=== PATIENT | female | born 1935 | race Caucasian/White ===

== ENCOUNTER 2018-04-13 16:11 | Outpatient (CLI) | payer MEDICARE ==
--- NOTE | 2018-04-13 16:32 | RAD ---
THORACIC SPINE THREE VIEWS: HISTORY: Back pain. Fall three weeks ago. FINDINGS: There is severe compression deformity involving the T12 vertebra. This vertebra has a vertebral plan a type deformity with severe loss of central and anterior height. There may be slight retropulsion a t the posterior cortex. The other thoracic vertebrae maintain normal height. 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 This is age indeterminate. POS: [facility]
== END 2018-04-13 16:12 | disposition home or self-care (01) ==
LOC: NAV RAD 16:11
PROVIDERS: ATTEND Family Medicine
DX: M54.6 Pain in thoracic spine (principal); M43.8X4 Other specified deforming dorsopathies, thoracic region
CPT/HCPCS: 72072

== ENCOUNTER 2024-12-03 11:02 | Outpatient (CLI) | payer MEDICARE | END 2024-12-03 11:03 | disposition home or self-care (01) | LOC: NAV RAD 11:02 | PROVIDERS: ATTEND Student in an Organized Health Care Education/Training Program | DX: M54.50 Low back pain, unspecified (principal); M25.551 Pain in right hip; M25.552 Pain in left hip; M16.0 Bilateral primary osteoarthritis of hip; M47.816 Spondylosis without myelopathy or radiculopathy, lumbar region; I70.0 Atherosclerosis of aorta | CPT/HCPCS: 72100 ==

== ENCOUNTER 2024-12-10 12:06 | Outpatient (CLI) | payer MEDICARE | END 2024-12-10 12:07 | disposition home or self-care (01) | LOC: NAV RAD 12:06 | PROVIDERS: ATTEND Student in an Organized Health Care Education/Training Program | DX: M25.551 Pain in right hip (principal); S32.049S Unspecified fracture of fourth lumbar vertebra, sequela; M47.816 Spondylosis without myelopathy or radiculopathy, lumbar region; M16.11 Unilateral primary osteoarthritis, right hip | CPT/HCPCS: 72100 ==